=== PATIENT | male | born 1965 | race African-American/Black ===

== ENCOUNTER 2017-04-05 18:45 | Inpatient (IN) | payer BC ==
[~2017-04-05] VITALS: Ht 182.9 cm; Wt 135.2 kg
--- NOTE | ~2017-04-05 | 2DMMODE ---
[facility] [address] [place] [address] 2 D/M-MODE ECHOCARDIOGRAM Name: EDUARDO JEONG Room #: 455-P ADM IN M.R.#: [id number] Admission: 04/05/17 Attend Phys: Catherine Guzman Discharge: Date of : 67 Date of Service: 04/07/17 1135 Report #: [id number] THIS REPORT FOR: //name// APPROVED REPORT Study performed: 04/06/2017 09:47:36 EXAM: Comprehensive 2D, Doppler, and color-flow Echocardiogram Patient Location: Bedside Room #: [facility] Status: routine BSA: 2.51 HR: 75 bpm BP: 172/109 mmHg Other Information Study Quality: Fair Indications Pulmonary Embolism Hx SOA, CP, DM, HTN 2D Dimensions RVDd: 37.08 mm LVEF(%): 52.84 (>50%) IVSd: 13.86 (7-11mm) LVOT Diam: 23.08 (18-24mm) LVDd: 54.62 mm PWd: 10.72 (7-11mm) Ascending Ao: 30.96 (22-36mm) LVDs: 39.62 (25-40mm) Aortic Root: 34.59 mm Schwartz's LVEF: 52.84 % Volumes Left Atrial Volume (Systole) Single Plane 4CH: 44.63 mL Single Plane 2CH: 65.83 mL LA ESV Index: 24.00 mL/m2 Aortic Valve AoV Peak Domenic.: 1.62 m/s AO Peak Gr.: 10.50 mmHg LVOT Max P.24 mmHg LVOT Max V: 1.25 m/s FALLON Vmax: 3.22 cm2 Mitral Valve E/A Ratio: 1.1 MV Decel. Time: 198.81 ms [facility] [place] [address] 2 D/M-MODE ECHOCARDIOGRAM Name: EDUARDO JEONG Room #: 455-[facility] IN M.R.#: [id number] Admission: 04/05/17 Attend Phys: Catherine Guzman Discharge: Date of : 67 Date of Service: 04/07/17 1135 Report #: [id number] MV E Max Domenic.: 0.73 m/s MV A Domenic.: 0.68 m/s MV PHT: 57.66 ms IVRT: 94.58 ms Pulmonary Valve PV Peak Domenic.: 1.12 m/s PV Peak Gr.: 5.02 mmHg Pulmonary Vein P Vein S: 0.51 m/s P Vein A: 0.40 m/s P Vein D: 0.39 m/s P Vein A Dur.: 138.4 msec P Vein S/D Ratio: 1.31 Tricuspid Valve TR Peak Domenic.: 2.18 m/s RAP Estimate: 5.00 mmHg TR Peak Gr.: 19.03 mmHg PA Pressure: 24.00 mmHg Left Ventricle The left ventricle is normal size. Borderline concentric left ventricular hypertrophy. The left ventricular systolic function is normal. The left ventricular ejection fraction is within the normal range. LVEF is 60%. Grade II - pseudonormal filling dynamics. Right Ventricle The right ventricle is normal size. Atria The left atrium size is normal. Atrial septum is bowed toward the left. Right atrium is dilated. Aortic Valve The aortic valve is normal in structure. No aortic regurgitation is present. There is no aortic valvular stenosis. Mitral Valve The mitral valve is normal in structure. There is no mitral valve regurgitation noted. No evidence of mitral valve stenosis. Tricuspid Valve The tricuspid valve is normal in structure. There is no tricuspid valve regurgitation noted. Pulmonic Valve The pulmonary valve is normal in structure. There is no pulmonic valvular regurgitation. [facility] [address] [place] [address] 2 D/M-MODE ECHOCARDIOGRAM Name: EDUARDO JEONG Room #: 455-P ADM IN M.R.#: [id number] Admission: 04/05/17 Attend Phys: Catherine Guzman Discharge: Date of : 67 Date of Service: 04/07/17 1135 Report #: [id number] Great Vessels The aortic root is normal in size. IVC is not well visualized. Pericardium There is no pericardial effusion. <Conclusion> The left ventricle is normal size. Borderline concentric left ventricular hypertrophy. LVEF is 60%. Grade II - pseudonormal filling dynamics. The right ventricle is normal size. The left atrium size is normal. Right atrium is dilated. The aortic valve is normal in structure. There is no mitral valve regurgitation noted. There is no tricuspid valve regurgitation noted. There is no pericardial effusion. <ELECTRONICALLY SIGNED> By: Brandon Dupont MD, FACC 04/07/17 1135 1135 1135 Brandon Dupont MD, FACC /INF
--- NOTE | ~2017-04-05 | HC ---
[facility] [address] [address] CONSULTATION Name: EDUARDO JEONG Room #: 455-P ADM IN M.R.#: [id number] Admission: 04/05/17 Attend Phys: Catherine Shaw Discharge: Date of : 67 Report #: [id number] THIS REPORT FOR: //name// CC: Catherine Coleman MD REASON FOR CONSULTATION: Bilateral pulmonary embolus. 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 Also, he had a slight chest heaviness, maybe a little burping or belching more than usual. He was seen in the Emergency Room and the CAT scan appears to show bilateral pulmonary emboli. He just had an ultrasound of his legs, which did not show clots. Note that an echo is pending. He denies any headache, fevers, chills, significant cough. No spitting up of blood, no nosebleeds. No blood in his urine or stool. No new GI upsets, except for maybe some slight belching lately, which he took an antacid for and it helped after he burped. He also denies any diarrhea, any constipation, any arm or leg swelling, any skin rash, any trauma, any long car rides. Note that the patient said he had his first clot in the , when he was in his 30s and a left leg deep venous thrombosis. He had been driving half way to [place], had been in the car right for about 14 hours. Notes that about 2 weeks ago he was doing some driving back and forth, something to do with a soccer game with one of his daughters, but he was trying to stretch his legs, move around and stay hydrated. PAST MEDICAL HISTORY: Notable for obstructive sleep apnea, using a CPAP for the last year, but he has not had loud snoring for quite a while. Also, 3 back surgeries, hypertension and diabetes. ALLERGIES: HE GETS SOME SLIGHT NAUSEA WITH HYDROCODONE, MORE OF AN INTOLERANCE. 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 Nonsmoker, no alcohol, no street drugs. FAMILY HISTORY: Mother began having clots at age 40, has an inferior vena cava filter, still alive. One brother with sickle cell about age 40. One son about age 21 with pulmonary emboli. Two daughters, one has factor V Leiden, unclear if it is 1 or 2 copies. HOME MEDICATIONS: Included the losartan and, I believe, metformin. [facility] [address] [place] [address] CONSULTATION Name: EDUARDO JEONG Room #: 455-P [facility] IN M.R.#: [id number] Admission: 04/05/17 Attend Phys: Catherine Shaw Discharge: Date of : 67 Report #: [id number] CURRENT MEDICATIONS: Include metformin 500 mg daily, losartan 25 daily, insulin on a sliding scale, morphine p.r.n. and heparin drip continued. LABORATORY DATA: The patient has not had a hypercoagulable workup that he knows of. Here in the hospital, the patient's creatinine is 1.2, 1.4. Liver functions are not drawn; we will draw those. His baseline coags, prothrombin 9.8, aPTT of 27.1. He is on a heparin drip. White count on admission was 6.1, hemoglobin on admission was 13.2 with an MCV of 82.1, RDW of about 14.5, platelet count of 173. Differential normal. Pending at this time include antithrombin 3, protein C activity, protein S activity, factor V Leiden, prothrombin gene mutation, DRVVT, anticardiolipin IgM and IgG. UA not done, will check that. I think the patient told me he had a colonoscopy, but I will need to check on that. Radiologic studies this admission include the CTA chest that described multiple oops, multifocal defects within the right lower lobe, right upper lobe, left upper lobe, left lower lobe, pulmonary artery branches, consistent with bilateral pulmonary artery emboli. The heart size is normal without evidence of pericardial effusion. Limited imaging to the upper abdomen is normal except for fatty infiltration. I was at the bedtime when the tech was doing the ultrasound and it appears there was no obvious clots to her eyes. PHYSICAL EXAMINATION: GENERAL: The patient appears his stated age. VITAL SIGNS: Height is 6 feet or 182.9 cm, weight is 295 pounds or 133.8 kg. Blood pressure is 134/85, O2 sat 94% on 2 liters, temperature afebrile at 98.1, respirations 24, pulse 74. MOOD: The patient is very alert, pleasant and appears to be a very reliable historian. One of his daughters is present in the room. She is the one without the factor V Leiden. HEART: Regular rate. No definite murmurs. LUNGS: Appear clear. ABDOMEN: Obese, nontender. EXTREMITIES: Without clubbing, cyanosis or edema. DISCUSSION: Discussed with the patient that since this is his second clot and also with the family history of a son with a clot at young age and a daughter with factor V Leiden, he most likely has something contributing to his hypercoagulable condition. Await above tests, may also consider adding beta-2 glycoprotein 1 antibodies. I agree with anticoagulation at this time, will await pulmonary and echo results to see if he needs thrombolysis, though I doubt it will be needed. We also talked about lupus anticoagulants. Most likely, given this is his second clot in series, he will probably be on quite a bit longer if not lifelong anticoagulation, because I think the risk of clots would be higher than the risk of bleeding. He reports no bleeding issues when he was on the blood thinner last time. Activity: Since the patient's legs do not show a clot and especially if the CAT scans do not show any clots, then the patient [address] [address] CONSULTATION Name: EDUARDO JEONG Room #: 455-P [facility] IN M.R.#: [id number] Admission: 04/05/17 Attend Phys: Catherine Shaw Discharge: Date of : 67 Report #: [id number] can be up as tolerated. ASSESSMENT AND PLAN: 1. History of deep venous thrombosis and now with bilateral pulmonary emboli. I agree with anticoagulation. Await echocardiogram. We will also do CT abdomen and pelvis to make sure there is no abdominopelvic clots or reasons for the clots. In the meantime, once if the patient continues to improve, could consider switching to Lovenox and perhaps even an oral anticoagulant. We will wait to see which medicines were found to be abnormal. 2. History of hypertension. Continue his losartan as needed. 3. Diabetes. Oral agents as needed. 4. Obstructive sleep apnea. CPAP as needed. We will follow with you. <ELECTRONICALLY SIGNED> By: Addi [place] MD 04/07/17 0832 0858 1150 Addi [place] MD /nt
--- NOTE | ~2017-04-05 | EKG ---
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
--- NOTE | ~2017-04-05 | HC ---
[facility] [place] [address] [place] [address] CONSULTATION Name: EDUARDO JEONG Room #: 455- ADM IN M.R.#: [id number] Admission: 04/05/17 Attend Phys: Catherine Shaw Discharge: Date of : 67 Report #: [id number] THIS REPORT FOR: //name// CC: Catherine Corona DATE OF SERVICE: 04/06/2017 REFERRING PROVIDER: Kate Lombardi MD. REASON FOR CONSULTATION: Pulmonary embolism. CHIEF COMPLAINT: Shortness of breath. HISTORY OF PRESENT ILLNESS: Our group was asked to see the patient in consultation while hospitalized at [facility]. He had a prior history of DVT in the early . The patient denies any recent travel or prolonged sitting. Presented to the emergency department with chest discomfort and significant dyspnea on exertion that has been progressive. There is a strong family history of hypercoagulable condition including a factor V Leiden. Denies any fever, chills or sweats. In the emergency department, a CT scan of the chest revealed multiple pulmonary emboli, started on heparin drip and admitted for further evaluation. On my evaluation this afternoon, the patient was to get CT abdomen and pelvis and was drinking oral contrast. Because of this, the patient was also having some nausea and vomiting at that time. The patient also has history of migraines and having significant headache. ALLERGIES: HYDROCODONE WITH SOME INTOLERANCE. PAST MEDICAL HISTORY: 1. Obstructive sleep apnea, on nocturnal CPAP. 2. Hypertension. 3. Diabetes mellitus. 4. History of headaches, the patient states are migraines, usually alleviated with ibuprofen. SOCIAL HISTORY: History of no alcohol or tobacco use. 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 FAMILY HISTORY: Significant for clotting disorders including mother who has an IVC filter, a son who of pulmonary embolism at 21, and 2 daughters with factor V Leiden. MEDICATIONS: Include metformin and losartan. [facility] [address] [place] [address] CONSULTATION Name: EDUARDO JEONG Room #: 455-P [facility] IN .R.#: [id number] Admission: 04/05/17 Attend Phys: Catherine Shaw Discharge: Date of : 67 Report #: [id number] REVIEW OF SYSTEMS: Rest of 12-point review of systems is normal except as described in the HPI. PHYSICAL EXAMINATION: VITAL SIGNS: Afebrile, pulse 80s, respiratory rate 18, blood pressure 150/95, and oxygen saturation 92% on 3 liters. GENERAL: This is a pleasant male, obviously uncomfortable due to headache. ENT: Clear oropharynx, Mallampati 3 airway. NECK: Supple, no lymphadenopathy. LUNGS: Clear. No wheezes or crackles. CARDIOVASCULAR: Heart regular. No murmurs or gallops. ABDOMEN: Soft, nontender, no masses. EXTREMITIES: Without edema. LABS: Chemistry profile normal except for elevated glucose of 263. CBC within normal limits except for mildly reduced hemoglobin at 12.3. No arterial blood gas. IMPRESSION: 1. Venous thromboembolism, this is recurrent in this patient, likely due to some hypercoagulable condition particularly given his family history. Hematology consult appreciated. 2. Diabetes mellitus type 2. 3. Hypertension. SUGGEST: 1. Await echocardiogram. 2. Change from heparin GTT to enoxaparin. 3. Likely free to mobilize in a.m. 4. Defer headache treatment to primary team. Consider CT imaging of the head if persists. 5. We will follow along with you. Thank you for requesting our suggestions. By: 1628 1824 Christiano Coleman MD /nt
[~2017-04-05 18:45] MED LIST: COLACE100 MG PO; ENOXAPARIN40 MG/0.1 SUBQ; FLEXERIL PO; HYDROCODON-ACE1 EAC5 PO; HYDROCODON-ACE1 EAC8 PO; IBUPROFEN 800800 M1 PO; MEDROLDOSEPACK; MIRALAX255 GM PO; NORCO 5-325 TA1 EACH PO; OXYCODON-ACETA1 EAC1 PO; OXYCODONE HCL5 M1 PO; PERCOCET 5-3251 EACH PO; PERCOCET 7.5-31 EACH PO; ROBAXIN 750 MG750 MG PO; SEPTRA DS TABL1 EACH PO; TRAMADOL 50 MG50 MG PO
[2017-04-05 18:47] VITALS: BP 148/94
[2017-04-05] MEDS ORDERED: COZAAR 25 MG TA25 M1 PO (19:25)
[2017-04-05] MEDS ORDERED: METFORMIN HCL500 MG PO (19:25)
[2017-04-05 19:31] LABS: ABSOLUTE NEUTROPHILS 3.5 thou/uL (1.4-8.2); BASOPHILS 0.9 % (0.0-2.0); HEMATOCRIT 39.5 % (42.0-52.0); HEMOGLOBIN 13.2 gm/dL (14.0-18.0); LYMPHOCYTES 31.6 % (24.0-44.0); MANUAL DIFF NO; MCH 27.5 pg (26.0-34.0); MCHC 33.5 g/dL (28.0-37.0); MCV 82.1 fL (80.0-100.0); MONOCYTES 7.3 % (1.0-8.0); PLATELET COUNT 173 thou/uL (150-400); POLYS 57.2 % (36.0-66.0); RBC 4.81 mil/uL (4.50-6.00); RDW 14.5 % (10.5-14.5); WBC 6.1 thou/uL (4.0-11.0)
[2017-04-05 19:36] LABS: ANION GAP 9 mmol/L (7-16); BUN 11 mg/dL (7-18); CALCIUM 8.7 mg/dL (8.5-10.1); CHLORIDE 106 mmol/L (98-107); CO2 26 mmol/L (21-32); CREATININE 1.4 mg/dL (0.7-1.3); GLUCOSE 215 mg/dL (74-106); POTASSIUM 3.8 mmol/L (3.5-5.1); SODIUM 141 mmol/L (136-145)
[2017-04-05 19:44] LABS: TROPONIN-I < 0.04 ng/mL (<0.04-0.07)
[2017-04-05 22:34] LABS: HEMATOCRIT 39.1 % (42.0-52.0); HEMOGLOBIN 13.5 gm/dL (14.0-18.0); MCH 28.1 pg (26.0-34.0); MCHC 34.5 g/dL (28.0-37.0); MCV 81.4 fL (80.0-100.0); RBC 4.8 mil/uL (4.50-6.00); RDW 14.5 % (10.5-14.5); WBC 6.6 thou/uL (4.0-11.0)
[2017-04-05 22:50] LABS: PROTIME 9.8 Seconds (9.3-11.4)
[2017-04-05 22:55] VITALS: BP 135/86
[2017-04-05 23:03] VITALS: BP 152/83
[2017-04-06 00:41] LABS: HEMATOCRIT 37.9 % (42.0-52.0); HEMOGLOBIN 12.8 gm/dL (14.0-18.0); MCH 27.9 pg (26.0-34.0); MCHC 33.9 g/dL (28.0-37.0); MCV 82.3 fL (80.0-100.0); RBC 4.61 mil/uL (4.50-6.00); RDW 14.6 % (10.5-14.5); WBC 6.5 thou/uL (4.0-11.0)
[2017-04-06 04:47] VITALS: BP 134/85
[2017-04-06 04:58] LABS: HEMATOCRIT 36.5 % (42.0-52.0); HEMOGLOBIN 12.3 gm/dL (14.0-18.0); MCH 27.9 pg (26.0-34.0); MCHC 33.8 g/dL (28.0-37.0); MCV 82.5 fL (80.0-100.0); RBC 4.43 mil/uL (4.50-6.00); RDW 14.6 % (10.5-14.5); WBC 5.9 thou/uL (4.0-11.0)
[2017-04-06 05:21] LABS: ANION GAP 8 mmol/L (7-16); BUN 10 mg/dL (7-18); CALCIUM 8.2 mg/dL (8.5-10.1); CHLORIDE 105 mmol/L (98-107); CO2 26 mmol/L (21-32); CREATININE 1.2 mg/dL (0.7-1.3); GLUCOSE 263 mg/dL (74-106); POTASSIUM 3.8 mmol/L (3.5-5.1); SODIUM 139 mmol/L (136-145); TROPONIN-I < 0.04 ng/mL (<0.04-0.07)
[2017-04-06 08:01] VITALS: BP 172/109
[2017-04-06 10:57] VITALS: BP 150/95
[2017-04-06 17:32] VITALS: BP 155/89
[2017-04-06 19:35] VITALS: BP 167/97
[2017-04-07 00:22] VITALS: BP 160/76
[2017-04-07 03:52] VITALS: BP 150/72
[2017-04-07 08:22] VITALS: BP 136/83
[2017-04-07 13:08] VITALS: BP 143/97
[2017-04-07 16:58] VITALS: BP 148/92
[2017-04-07 21:28] VITALS: BP 163/94
[2017-04-08 00:04] VITALS: BP 150/92
[2017-04-08 04:54] VITALS: BP 151/92
[2017-04-08 06:52] LABS: ABSOLUTE NEUTROPHILS 2.5 thou/uL (1.4-8.2); BASOPHILS 0.5 % (0.0-2.0); EOSINOPHILS 3.9 % (0.0-3.0); HEMATOCRIT 37.4 % (42.0-52.0); HEMOGLOBIN 12.4 gm/dL (14.0-18.0); LYMPHOCYTES 32.5 % (24.0-44.0); MCH 27.2 pg (26.0-34.0); MCHC 33.1 g/dL (28.0-37.0); MCV 82.4 fL (80.0-100.0); MONOCYTES 8.6 % (1.0-8.0); PLATELET COUNT 168 thou/uL (150-400); POLYS 54.5 % (36.0-66.0); RBC 4.54 mil/uL (4.50-6.00); RDW 14.6 % (10.5-14.5); WBC 4.6 thou/uL (4.0-11.0)
[2017-04-08 06:53] LABS: CALCIUM 8.3 mg/dL (8.5-10.1); CREATININE 1.2 mg/dL (0.7-1.3); POTASSIUM 3.6 mmol/L (3.5-5.1)
[2017-04-08 06:54] LABS: MANUAL DIFF NO
[2017-04-08 08:31] VITALS: BP 157/104
[2017-04-08] MEDS ORDERED: XARELTO15 MG PO (09:29)
[2017-04-08 09:50] VITALS: BP 157/104
[2017-04-08] MEDS ORDERED: ENOXAPARIN150 MG/11 SUBQ (10:45)
[2017-04-08] MEDS ORDERED: WORK RELEASE (10:45)
[2017-04-08 21:07] LABS: BETA-2 GLYCOPROTEIN IGG < 9 (0-20); BETA-2 GLYCOPROTEIN IGM < 9 (0-32)
[2017-04-09 01:06] LABS: ANTITHROMBIN III 95 % (75-135); DIL. RUSSELL VIPER VENOM 52.3 sec (0.0-47.0)
[2017-04-11 19:08] LABS: PROTHROMBIN GENE MUTATION Negative (())
== END 2017-04-08 10:51 | disposition home or self-care (01) | DRG 175 ==
LOC: ER 18:45 → EROBS 21:18 → 4W 21:18
PROVIDERS: Emergency Medicine; Internal Medicine Endocrinology, Diabetes & Metabolism; Internal Medicine Hematology & Oncology; Nurse Practitioner Family
DX: I26.99 Other pulmonary embolism without acute cor pulmonale (principal); J96.00 Acute respiratory failure, unspecified whether with hypoxia or hypercapnia; N17.9 Acute kidney failure, unspecified; G47.33 Obstructive sleep apnea (adult) (pediatric); I12.9 Hypertensive chronic kidney disease with stage 1 through stage 4 chronic kidney disease, or unspecified chronic kidney disease; N18.9 Chronic kidney disease, unspecified; E11.22 Type 2 diabetes mellitus with diabetic chronic kidney disease; E11.65 Type 2 diabetes mellitus with hyperglycemia; Z86.718 Personal history of other venous thrombosis and embolism; Z88.6 Allergy status to analgesic agent; Z88.8 Allergy status to other drugs, medicaments and biological substances; Z84.89 Family history of other specified conditions
CPT/HCPCS: 10045

== ENCOUNTER 2019-09-01 10:29 | Emergency (ER) | payer BC ==
[~2019-09-01] VITALS: Ht 177.8 cm; Wt 122.5 kg
[~2019-09-01 10:29] MED LIST changes: +COZAAR 25 MG TA25 M1 PO; +ENOXAPARIN150 MG/11 SUBQ; +METFORMIN HCL500 MG PO; +WORK RELEASE; +XARELTO15 MG PO
[2019-09-01] MEDS ORDERED: ELIQUIS5 MG PO (10:32)
[2019-09-01 11:34] LABS: HEMATOCRIT 43.4 % (42.0-52.0); HEMOGLOBIN 14.3 gm/dL (14.0-18.0); MCH 27.7 pg (26.0-34.0); MCHC 33.1 g/dL (28.0-37.0); MCV 83.9 fL (80.0-100.0); PLATELET COUNT 146 thou/uL (150-400); RBC 5.17 mil/uL (4.50-6.00); RDW 13.9 % (10.5-14.5); WBC 5.3 thou/uL (4.0-11.0)
[2019-09-01 11:41] LABS: CALCIUM 8.8 mg/dL (8.5-10.1); CREATININE 1.5 mg/dL (0.7-1.3); POTASSIUM 4.1 mmol/L (3.5-5.1)
[2019-09-01 11:44] LABS: ALBUMIN 3.8 g/dL (3.4-5.0); TOTAL BILIRUBIN 0.4 mg/dL (<0.1-1.0); TOTAL PROTEIN 7.9 g/dL (6.4-8.2)
[2019-09-01 11:45] LABS: TROPONIN-I <0.06 ng/mL (<0.06)
[2019-09-01 12:13] LABS: ABSOLUTE NEUTROPHILS 3.6 thou/uL (1.4-8.2); ANISOCYTOSIS SLIGHT
[2019-09-01] MEDS ORDERED: ONDANSETRON ODT4 MG PO (14:15)
[2019-09-01 14:24] VITALS: BP 145/84
--- NOTE | 2019-09-01 17:02 | EKG ---
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
== END 2019-09-01 14:24 | disposition home or self-care (01) ==
LOC: ER 10:29
PROVIDERS: Emergency Medicine
DX: J10.1 Influenza due to other identified influenza virus with other respiratory manifestations (principal); E11.9 Type 2 diabetes mellitus without complications; I10 Essential (primary) hypertension; G47.30 Sleep apnea, unspecified; Z88.5 Allergy status to narcotic agent; Z79.899 Other long term (current) drug therapy